=== PATIENT | male | born 1930 | race Hispanic/Latino ===

== ENCOUNTER 2021-04-23 12:55 | Inpatient (IN) | payer MEDICARE, SELFPAY ==
[2021-04-23 13:22] LABS: Actual Bicarbonate (HCO3v) 21 mEq/L (22-28); Analyzer IN Cardio ER; Base Excess -3.2 mEq/L (-2.0 to +3.0); Calcium, Ionized (venous) 1.12 mmol/L (1.16-1.32); Chloride (VBG) 109 mmol/L (98-106); Hemoglobin (Hb) 17.9 g/dL (12.6-17.4); Sodium 140.9 mmol/L (133-146); pH (venous) 7.38 (7.32-7.43)
[2021-04-23 13:46] LABS: #Eosinphils 0.1 thou/uL (0.0-0.7); #Lymphocytes 1.2 thou/uL (1.20-3.40); #Monocytes 0.4 thou/uL (0.11-0.59); #Neutrophils 7.8 thou/uL (1.40-6.50); %Basophils 0.2 % (0.0-1.0); %Eosinophils 0.9 % (0.0-10.0); %Lymphocytes 12.6 % (21.0-51.0); %Monocytes 4.6 % (0.0-10.0); %Neutrophils 81.6 % (42.0-75.0); Hemoglobin 16.5 g/dL (14.0-18.0); Mean Corpuscular HGB CONC 32.6 g/dL (32.0-36.0); Mean Corpuscular Hemoglobin 31.3 pg (27.0-31.0); Mean Platelet Volume 7.7 fL (7.4-10.4); Platelet Count 151 thou/uL (130-400); RBC Distribution Width 12.9 % (11.5-14.5); Red Blood Cell (RBC) Count 5.28 mill/uL (4.70-6.10); White Blood Cell (WBC) Count 9.6 thou/uL (4.8-10.8)
[2021-04-23] MEDS ORDERED: EPINEPHrine 1 MG/ML AMP ONE (13:46)
[2021-04-23] MEDS ORDERED: Bupivacaine PF 0.5% 30 ML VIAL ONE (13:46)
[2021-04-23] MEDS ORDERED: Albumin 5% 500 ML ONE (13:46)
[2021-04-23] MEDS ORDERED: Dexamethasone 4 mg/ml Vial ONE (13:46)
[2021-04-23] MEDS ORDERED: Midazolam HCl 5 mg/5 ml Vial ONE (13:55)
[2021-04-23] MEDS ORDERED: Fentanyl 250 MCG/5 ML VIAL ONE (13:55)
[2021-04-23 14:00] LABS: ALT (SGPT) 23 U/L (8-55); AST (SGOT) 29 U/L (5-34); Albumin 3.5 g/dL (3.4-4.8); Alkaline Phosphatase 47 U/L (40-110); Anion Gap 16 mmol/L (10-20); BUN (Urea Nitrogen) 17 mg/dL (8.4-25.7); Calc. Creatinine Clearance 0 mL/min (70-130); Carbon Dioxide 15 mmol/L (23-31); Chloride 111 mmol/L (98-107); Globulin 3.7 g/dL (2.4-3.5); Glucose 149 mg/dL (83-110); Potassium 3.9 mmol/L (3.5-5.1); Protein, Total 7.2 g/dL (5.8-8.1); Sodium 138 mmol/L (136-145)
[2021-04-23] MEDS ORDERED: Aminocaproic Acid 5 GM/20 ML VIAL ONE (14:26)
[2021-04-23] MEDS ORDERED: Norepinephrine 4 MG/4 ML VIAL ONE (14:26)
[2021-04-23] MEDS ORDERED: Protamine Sulfate 250 MG/25 ML VIAL ONE (14:26)
[2021-04-23] MEDS ORDERED: Heparin 30,000 units/30 ml VIAL ONE (14:26)
[2021-04-23] MEDS ORDERED: Vecuronium 10 MG VIAL ONE (14:26)
[2021-04-23] MEDS ORDERED: Glycopyrrolate 0.2 MG/ML 5 ML SYRINGE ONE (14:26)
[2021-04-23] MEDS ORDERED: Sodium Bicarb 50 MEQ/50 ML Abboject 8.4% SYRINGE ONE (14:26)
[2021-04-23] MEDS ORDERED: Mannitol 12.5 GM/50 ML ONE (14:26)
[2021-04-23] MEDS ORDERED: Thrombin 5000 UNITS/5 ML VIAL ONE (14:26)
[2021-04-23] MEDS ORDERED: Calcium Chloride 1 GM/10 ML Abboject SYRINGE ONE (14:26)
[2021-04-23] MEDS ORDERED: Cardioplegic Soln 1,000 ML BAG ONE (14:26)
[2021-04-23] MEDS ORDERED: PROPOFOL 200 MG/20 ML VIAL ONE (14:26)
[2021-04-23] MEDS ORDERED: Lidocaine 2% PF 100 mg/5 ml Syringe ONE (14:26)
[2021-04-23] MEDS ORDERED: Papaverine 60 MG/2 ML VIAL ONE (14:26)
[2021-04-23] MEDS ORDERED: Heparin 5,000 UNITS/ML VIAL ONE (14:26)
[2021-04-23] MEDS ORDERED: Potassium Chloride 60 MEQ/30 ML VIAL ONE (14:26)
[2021-04-23] MEDS ORDERED: Magnesium Sulfate 1 GM/2 ML VIAL ONE (14:26)
[2021-04-23] MEDS ORDERED: CEFAZOLIN 2 GM in Premix Bag 1 BAG IVPB SCH (14:30)
[2021-04-23] MEDS ORDERED: Mag-Al 1200 mg/1200 mg/30 ML UDCUP PO PRN (18:08)
[2021-04-23] MEDS ORDERED: traMADol HCl 50 MG TAB PO PRN ×2 (18:08)
[2021-04-23] MEDS ORDERED: Hetastarch 6% 500 ML 500 ML IVPB PRN (18:08)
[2021-04-23] MEDS ORDERED: Guaifenesin DM 100-10/5 ML UDCUP PO PRN (18:08)
[2021-04-23] MEDS ORDERED: Nitroglycerin 50 MG/250 ML BOT 250 ML IVPB PRN (18:08)
[2021-04-23] MEDS ORDERED: Morphine 2 MG/ML VIAL SLOW IVP PRN ×2 (18:08→19:15)
[2021-04-23] MEDS ORDERED: Post-Op Insulin Drip Protocol IVPB ONE (18:08)
[2021-04-23] MEDS ORDERED: Potassium Chloride 20 MEQ/100 ML PREMIX BAG IVPB PRN (18:08)
[2021-04-23] MEDS ORDERED: Norepinephrine 8 MG/0.9% NS 250 ML IVPB PRN (18:08)
[2021-04-23] MEDS ORDERED: Fentanyl 100 MCG/2 ML VIAL SLOW IVP PRN ×2 (18:08)
[2021-04-23] MEDS ORDERED: Bisacodyl 10 MG SUPP PR PRN (18:08)
[2021-04-23] MEDS ORDERED: Promethazine HCl 25 MG/ML VIAL IM PRN (18:08)
[2021-04-23] MEDS ORDERED: Magnesium 2 GM/50 ML 2 GM in Premix Bag 1 BAG IVPB SCH (18:08)
[2021-04-23] MEDS ORDERED: Atropine Sulfate 1 mg/10 ml Syringe ONE ×2 (18:10→20:16)
[2021-04-23] MEDS ORDERED: Insulin Regular 300 UNITS/3 ML VIAL ONE (18:15)
[2021-04-23] MEDS ORDERED: Fentanyl 100 MCG/2 ML VIAL ONE (18:17)
[2021-04-23 18:30] LABS: Hemoglobin 14.2 g/dL (14.0-18.0); Mean Corpuscular HGB CONC 32.7 g/dL (32.0-36.0); Mean Corpuscular Hemoglobin 31.7 pg (27.0-31.0); Mean Corpuscular Volume 97.1 fL (78.0-98.0); Mean Platelet Volume 7.8 fL (7.4-10.4); Platelet Count 141 thou/uL (130-400); Red Blood Cell (RBC) Count 4.47 mill/uL (4.70-6.10); White Blood Cell (WBC) Count 21.1 thou/uL (4.8-10.8)
[2021-04-23] MEDS ORDERED: DOPamine 400 MG/D5W 250 ML 250 ML ONE (18:34)
[2021-04-23 18:38] LABS: INR-International Normal Ratio 1.3; PTT 29.7 sec (22.9-36.1); Prothrombin Time 16.7 sec (12.0-14.7)
[2021-04-23] MEDS: D5 1/2 NS w/20 mEq KCL 1,000 ML IV SCH (18:40)
[2021-04-23] MEDS ORDERED: Morphine 4 MG/ML VIAL ONE (18:47)
[2021-04-23 18:50] LABS: Anion Gap 16 mmol/L (10-20); BUN (Urea Nitrogen) 14 mg/dL (8.4-25.7); Calc. Creatinine Clearance 0 mL/min (70-130); Calcium 9.3 mg/dL (7.8-10.44); Carbon Dioxide 14 mmol/L (23-31); Chloride 113 mmol/L (98-107); Glucose 158 mg/dL (83-110); Potassium 4.9 mmol/L (3.5-5.1); Sodium 138 mmol/L (136-145)
[2021-04-23 18:58] LABS: Band 31 % (5-11); Eosinophils 1 % (0-10); Lymphocytes 3 % (21-51); MDiff Complete? YES; Monocytes 1 % (0-10); Neutrophil 54 % (42-75); Platelet Morphology Comment Appears Adequate; RBC Morphology Normal; Reactive Lymphocytes 10 % (0-10)
[2021-04-23] MEDS ORDERED: Propofol 1,000 MG/100 ML VIAL IV ONE (19:08)
[2021-04-23] MEDS: Propofol 1,000 MG/100 ML VIAL IV PRN (19:10)
[2021-04-23] MEDS ORDERED: Morphine 4 MG/ML VIAL SLOW IVP PRN (19:15)
[2021-04-23] MEDS ORDERED: Lorazepam 2 MG/ML VIAL SLOW IVP PRN (19:15)
[2021-04-23] MEDS ORDERED: Propofol BOLUS 1,000 MG/100 ML VIAL IV PRN (19:15)
[2021-04-23] MEDS ORDERED: Fentanyl BOLUS 250 ML IVPB PRN (19:15)
[2021-04-23] MEDS ORDERED: Fentanyl CADD 100 ML IV SCH (19:15)
[2021-04-23] MEDS ORDERED: DISCONTINUE PREVIOUS NARCOTIC PAIN MEDICATIONS AND BENZODIAZEPINES FS SCH (19:15)
[2021-04-23] MEDS ORDERED: Lidocaine 1% (PF) 30 ML VIAL ONE (19:22)
[2021-04-23] MEDS ORDERED: Adenosine 6 MG/2 ML VIAL ONE (20:16)
[2021-04-23] MEDS: Ketorolac Tromethamine 30 MG/ML VIAL IVP SCH (20:51)
[2021-04-23] MEDS: Famotidine/PF 20 mg/2ml Vial SLOW IVP SCH (20:51)
[2021-04-23] MEDS: Atorvastatin Calcium 40 MG TAB PO SCH (20:52)
[2021-04-23] MEDS: HUMULIN R 100 UNITS in Sodium Chloride 0.9% 100 ML IVPB SCH (21:56)
[2021-04-23] MEDS: ceFAZolin Sodium/D5W 2 GM in Premix Bag 1 BAG IVPB SCH (22:23)
[2021-04-24 00:23] LABS: Hemoglobin 15.4 g/dL (14.0-18.0)
[2021-04-24] MEDS: Ketorolac Tromethamine 30 MG/ML VIAL IVP SCH ×4 (01:10→19:11)
[2021-04-24 01:43] LABS: Potassium 4.7 mmol/L (3.5-5.1)
[2021-04-24] MEDS: Propofol 1,000 MG/100 ML VIAL IV PRN (02:26)
[2021-04-24 04:36] LABS: #Eosinphils 0.1 thou/uL (0.0-0.7); #Lymphocytes 1.7 thou/uL (1.20-3.40); #Monocytes 1.1 thou/uL (0.11-0.59); #Neutrophils 15.8 thou/uL (1.40-6.50); %Basophils 0.3 % (0.0-1.0); %Eosinophils 0.4 % (0.0-10.0); %Lymphocytes 9.1 % (21.0-51.0); %Monocytes 5.7 % (0.0-10.0); %Neutrophils 84.6 % (42.0-75.0); Mean Corpuscular Hemoglobin 32.5 pg (27.0-31.0); Mean Corpuscular Volume 95.7 fL (78.0-98.0); Platelet Count 171 thou/uL (130-400); RBC Distribution Width 13.2 % (11.5-14.5); Red Blood Cell (RBC) Count 4.91 mill/uL (4.70-6.10); White Blood Cell (WBC) Count 18.6 thou/uL (4.8-10.8)
[2021-04-24 05:11] LABS: Anion Gap 13 mmol/L (10-20); BUN (Urea Nitrogen) 18 mg/dL (8.4-25.7); Calc. Creatinine Clearance 0 mL/min (70-130); Calcium 9.3 mg/dL (7.8-10.44); Carbon Dioxide 16 mmol/L (23-31); Chloride 114 mmol/L (98-107); Glucose 107 mg/dL (83-110); Potassium 4.2 mmol/L (3.5-5.1); Sodium 139 mmol/L (136-145)
[2021-04-24] MEDS: ceFAZolin Sodium/D5W 2 GM in Premix Bag 1 BAG IVPB SCH ×2 (06:18→12:55)
[2021-04-24] MEDS: Aspirin 325 MG TAB PO SCH (07:27)
[2021-04-24] MEDS: Magnesium 2 GM/50 ML 2 GM in Premix Bag 1 BAG IVPB SCH (07:29)
[2021-04-24] MEDS: Famotidine/PF 20 mg/2ml Vial SLOW IVP SCH ×2 (07:29→20:02)
[2021-04-24] MEDS: D5 1/2 NS w/20 mEq KCL 1,000 ML IV SCH (17:24)
[2021-04-24] MEDS: HUMULIN R 100 UNITS in Sodium Chloride 0.9% 100 ML IVPB SCH (17:25)
[2021-04-24] MEDS: Atorvastatin Calcium 40 MG TAB PO SCH (20:03)
[2021-04-25] MEDS: Ketorolac Tromethamine 30 MG/ML VIAL IVP SCH ×4 (00:03→19:29)
[2021-04-25 03:37] LABS: Chloride 112 mmol/L (98-107); Potassium 4.5 mmol/L (3.5-5.1); Sodium 140 mmol/L (136-145)
[2021-04-25 03:38] LABS: Calcium 8.2 mg/dL (7.8-10.44); Glucose 114 mg/dL (83-110)
[2021-04-25 03:40] LABS: Anion Gap 12 mmol/L (10-20); Carbon Dioxide 21 mmol/L (23-31)
[2021-04-25 03:42] LABS: BUN (Urea Nitrogen) 25 mg/dL (8.4-25.7); Calc. Creatinine Clearance 48 mL/min (70-130)
[2021-04-25 04:57] LABS: #Lymphocytes 1.8 thou/uL (1.20-3.40); #Monocytes 1.1 thou/uL (0.11-0.59); #Neutrophils 13.1 thou/uL (1.40-6.50); %Basophils 0.3 % (0.0-1.0); %Eosinophils 0.3 % (0.0-10.0); %Lymphocytes 11.2 % (21.0-51.0); %Monocytes 6.9 % (0.0-10.0); %Neutrophils 81.3 % (42.0-75.0); Hemoglobin 13.6 g/dL (14.0-18.0); Mean Corpuscular HGB CONC 34.2 g/dL (32.0-36.0); Mean Corpuscular Volume 96.6 fL (78.0-98.0); Mean Platelet Volume 7.8 fL (7.4-10.4); Platelet Count 119 thou/uL (130-400); Platelet Morphology Comment Appears Decreased; RBC Distribution Width 13.1 % (11.5-14.5); Red Blood Cell (RBC) Count 4.13 mill/uL (4.70-6.10); White Blood Cell (WBC) Count 16.1 thou/uL (4.8-10.8)
[2021-04-25] MEDS: Aspirin 325 MG TAB PO SCH (07:35)
[2021-04-25] MEDS: Famotidine/PF 20 mg/2ml Vial SLOW IVP SCH ×2 (07:36→20:05)
[2021-04-25] MEDS: Magnesium 2 GM/50 ML 2 GM in Premix Bag 1 BAG IVPB SCH (07:36)
[2021-04-25] MEDS ORDERED: Insulin Regular 300 UNITS/3 ML VIAL SC PRN ×2 (08:00)
[2021-04-25] MEDS ORDERED: Dextrose 5% in Water 1,000 ML IV PRN (08:15)
[2021-04-25] MEDS ORDERED: Dextrose 50% Abboject 50 ML SYRINGE IVP PRN (08:15)
[2021-04-25] MEDS: D5 1/2 NS w/20 mEq KCL 1,000 ML IV SCH (13:06)
[2021-04-25] MEDS: HYDROcodone/Acetaminophen 5/325 mg Tablet PO PRN (17:24)
[2021-04-25] MEDS: Atorvastatin Calcium 40 MG TAB PO SCH (20:05)
[2021-04-26] MEDS: Ketorolac Tromethamine 30 MG/ML VIAL IVP SCH ×4 (00:50→18:15)
[2021-04-26 05:17] LABS: Anion Gap 10 mmol/L (10-20); BUN (Urea Nitrogen) 27 mg/dL (8.4-25.7); Calc. Creatinine Clearance 57 mL/min (70-130); Calcium 7.7 mg/dL (7.8-10.44); Carbon Dioxide 22 mmol/L (23-31); Chloride 110 mmol/L (98-107); Glucose 108 mg/dL (83-110); Potassium 4.6 mmol/L (3.5-5.1); Sodium 137 mmol/L (136-145)
[2021-04-26 05:19] LABS: #Eosinphils 0.2 thou/uL (0.0-0.7); #Lymphocytes 1.5 thou/uL (1.20-3.40); #Monocytes 0.7 thou/uL (0.11-0.59); #Neutrophils 8.5 thou/uL (1.40-6.50); %Basophils 0.1 % (0.0-1.0); %Eosinophils 1.9 % (0.0-10.0); %Lymphocytes 13.5 % (21.0-51.0); %Monocytes 6.7 % (0.0-10.0); %Neutrophils 77.9 % (42.0-75.0); Hemoglobin 13.3 g/dL (14.0-18.0); Mean Corpuscular HGB CONC 32.2 g/dL (32.0-36.0); Mean Corpuscular Hemoglobin 31.4 pg (27.0-31.0); Mean Corpuscular Volume 97.7 fL (78.0-98.0); Mean Platelet Volume 8.1 fL (7.4-10.4); Platelet Count 97 thou/uL (130-400); RBC Distribution Width 13.1 % (11.5-14.5); Red Blood Cell (RBC) Count 4.25 mill/uL (4.70-6.10); White Blood Cell (WBC) Count 10.9 thou/uL (4.8-10.8)
[2021-04-26] MEDS ORDERED: Amiodarone 450 MG in Dextrose 5% in Water 250 ML IVPB SCH (06:00)
[2021-04-26] MEDS: Famotidine/PF 20 mg/2ml Vial SLOW IVP SCH ×2 (08:18→20:05)
[2021-04-26] MEDS: Aspirin 325 MG TAB PO SCH (09:27)
[2021-04-26] MEDS ORDERED: Furosemide 40 MG/4 ML VIAL SLOW IVP SCH (12:15)
[2021-04-26] MEDS ORDERED: Enoxaparin Sodium 40 MG/0.4 ML SYRINGE SC SCH (12:15)
[2021-04-26] MEDS: D5 1/2 NS w/20 mEq KCL 1,000 ML IV SCH (16:04)
[2021-04-26] MEDS: Atorvastatin Calcium 40 MG TAB PO SCH (20:05)
[2021-04-27] MEDS: hydrALAZINE 20 MG/ML VIAL SLOW IVP PRN (01:25)
[2021-04-27] MEDS: HYDROcodone/Acetaminophen 5/325 mg Tablet PO PRN ×3 (02:26→22:49)
[2021-04-27 04:14] LABS: #Eosinphils 0.3 thou/uL (0.0-0.7); #Lymphocytes 1.2 thou/uL (1.20-3.40); #Monocytes 0.7 thou/uL (0.11-0.59); #Neutrophils 10.3 thou/uL (1.40-6.50); %Basophils 0.3 % (0.0-1.0); %Eosinophils 2.7 % (0.0-10.0); %Lymphocytes 9.8 % (21.0-51.0); %Monocytes 5.5 % (0.0-10.0); %Neutrophils 81.7 % (42.0-75.0); Hemoglobin 14.7 g/dL (14.0-18.0); Mean Corpuscular HGB CONC 32.7 g/dL (32.0-36.0); Mean Corpuscular Hemoglobin 31.7 pg (27.0-31.0); Mean Corpuscular Volume 96.9 fL (78.0-98.0); Mean Platelet Volume 8.3 fL (7.4-10.4); Platelet Count 113 thou/uL (130-400); RBC Distribution Width 12.8 % (11.5-14.5); Red Blood Cell (RBC) Count 4.65 mill/uL (4.70-6.10); White Blood Cell (WBC) Count 12.6 thou/uL (4.8-10.8)
[2021-04-27 04:22] LABS: Anion Gap 16 mmol/L (10-20); BUN (Urea Nitrogen) 24 mg/dL (8.4-25.7); Calc. Creatinine Clearance 62 mL/min (70-130); Calcium 8.3 mg/dL (7.8-10.44); Carbon Dioxide 19 mmol/L (23-31); Chloride 107 mmol/L (98-107); Glucose 110 mg/dL (83-110); Potassium 4.4 mmol/L (3.5-5.1); Sodium 138 mmol/L (136-145)
[2021-04-27] MEDS ORDERED: CEFAZOLIN 1 GM VIAL ONE ×2 (06:43→11:55)
[2021-04-27] MEDS ORDERED: Gentamicin 80 MG/2 ML VIAL ONE (06:43)
[2021-04-27] MEDS ORDERED: Lidocaine 1% (PF) 30 ML VIAL ONE (06:43)
[2021-04-27] MEDS ORDERED: Furosemide 40 MG/4 ML VIAL ONE (06:55)
[2021-04-27] MEDS ORDERED: Furosemide 40 MG/4 ML VIAL SLOW IVP SCH (07:00)
[2021-04-27 07:33] LABS: ALV-art Gradient 108.485 mmHg (0-20); Actual Bicarbonate (HCO3a) 19.1 mEq/L (22-28); Base Excess (BEa) -2.6 mEq/L (-2.0 to +3.0); CO2 Tension 26.3 mmHg (35.0-45.0); Calcium, Ionized (arterial) 1.08 mmol/L (1.12-1.30); Carboxyhemoglobin (COHb) 0.5 gm% (0.0-3.0); Hemoglobin (Hb) 14.9 g/dL (14.0-18.0); O2 Tension (PaO2), arterial 86.8 mmHg (> 60.0); Potassium - ABG Lab 4.21 mmol/L (3.70-5.30); Puncture Site RRA; pH, Arterial 7.48 (7.35-7.45)
[2021-04-27] MEDS: Enoxaparin Sodium 80 MG/0.8 ML SYRINGE SC SCH ×3 (08:00→21:47)
[2021-04-27] MEDS: Aspirin 325 MG TAB PO SCH (08:42)
[2021-04-27] MEDS: Famotidine/PF 20 mg/2ml Vial SLOW IVP SCH ×2 (08:42→21:47)
[2021-04-27] MEDS ORDERED: Enoxaparin Sodium 80 MG/0.8 ML SYRINGE SC SCH (14:45)
[2021-04-27] MEDS: D5 1/2 NS w/20 mEq KCL 1,000 ML IV SCH (15:32)
[2021-04-27] MEDS: Amiodarone 450 MG in Dextrose 5% in Water 250 ML IVPB SCH (15:41)
[2021-04-27] MEDS: Atorvastatin Calcium 40 MG TAB PO SCH (21:47)
[2021-04-28 04:41] LABS: #Eosinphils 0.2 thou/uL (0.0-0.7); #Lymphocytes 1.7 thou/uL (1.20-3.40); #Monocytes 1.3 thou/uL (0.11-0.59); #Neutrophils 12.9 thou/uL (1.40-6.50); %Basophils 0.2 % (0.0-1.0); %Eosinophils 1.3 % (0.0-10.0); %Lymphocytes 10.7 % (21.0-51.0); %Neutrophils 79.9 % (42.0-75.0); Hemoglobin 15.4 g/dL (14.0-18.0); Mean Corpuscular HGB CONC 33.8 g/dL (32.0-36.0); Mean Corpuscular Hemoglobin 32.7 pg (27.0-31.0); Mean Corpuscular Volume 96.8 fL (78.0-98.0); Mean Platelet Volume 8.3 fL (7.4-10.4); Platelet Count 166 thou/uL (130-400); RBC Distribution Width 12.8 % (11.5-14.5); White Blood Cell (WBC) Count 16.2 thou/uL (4.8-10.8)
[2021-04-28 05:01] LABS: Anion Gap 16 mmol/L (10-20); BUN (Urea Nitrogen) 30 mg/dL (8.4-25.7); Calc. Creatinine Clearance 59 mL/min (70-130); Calcium 8.1 mg/dL (7.8-10.44); Carbon Dioxide 19 mmol/L (23-31); Chloride 105 mmol/L (98-107); Glucose 111 mg/dL (83-110); Potassium 4.5 mmol/L (3.5-5.1); Sodium 135 mmol/L (136-145)
[2021-04-28] MEDS: Amiodarone 450 MG in Dextrose 5% in Water 250 ML IVPB SCH ×2 (06:06→23:41)
[2021-04-28] MEDS: Aspirin 325 MG TAB PO SCH (08:38)
[2021-04-28] MEDS: Enoxaparin Sodium 80 MG/0.8 ML SYRINGE SC SCH (08:38)
[2021-04-28] MEDS: Famotidine/PF 20 mg/2ml Vial SLOW IVP SCH (08:39)
[2021-04-28] MEDS ORDERED: Enoxaparin Sodium 80 MG/0.8 ML SYRINGE SC SCH (10:22)
[2021-04-28] MEDS ORDERED: Nitroglycerin 0.4 MG TAB (25 Tab Bottle) SL PRN (10:23)
[2021-04-28] MEDS ORDERED: Guaifenesin DM 100-10/5 ML UDCUP PO PRN (10:23)
[2021-04-28] MEDS ORDERED: Mineral Oil ENEMA PR PRN (10:23)
[2021-04-28] MEDS: HYDROcodone/Acetaminophen 5/325 mg Tablet PO PRN (20:42)
[2021-04-28] MEDS: Atorvastatin Calcium 40 MG TAB PO SCH (20:42)
[2021-04-28] MEDS: Famotidine 20 MG TAB PO SCH (20:42)
[2021-04-29] MEDS: Aspirin 81 mg Enteric Coated Tablet PO SCH (09:17)
[2021-04-29] MEDS: Famotidine 20 MG TAB PO SCH ×2 (09:17→20:44)
[2021-04-29] MEDS: Amiodarone 450 MG in Dextrose 5% in Water 250 ML IVPB SCH (15:39)
[2021-04-29] MEDS: Atorvastatin Calcium 40 MG TAB PO SCH (20:44)
[2021-04-29] MEDS: HYDROcodone/Acetaminophen 5/325 mg Tablet PO PRN (20:44)
[2021-04-30] MEDS: Amiodarone 450 MG in Dextrose 5% in Water 250 ML IVPB SCH (04:56)
[2021-04-30] MEDS ORDERED: Atropine Sulfate 1 mg/10 ml Syringe ONE (05:56)
[2021-04-30] MEDS ORDERED: Gentamicin 80 MG/2 ML VIAL ONE (08:27)
[2021-04-30] MEDS ORDERED: CEFAZOLIN 1 GM VIAL ONE (08:27)
[2021-04-30] MEDS ORDERED: ceFAZolin 2 GM/DEX 5% 100 ML BAG ONE (08:27)
[2021-04-30] MEDS ORDERED: Heparin 0 ML ONE (08:27)
[2021-04-30] MEDS ORDERED: Lidocaine 1% (PF) 30 ML VIAL ONE (08:47)
[2021-04-30] MEDS: Aspirin 81 mg Enteric Coated Tablet PO SCH (08:54)
[2021-04-30] MEDS: Famotidine 20 MG TAB PO SCH ×2 (08:54→22:05)
[2021-04-30] MEDS ORDERED: Midazolam HCl 2 mg/2 ml Vial ONE (11:36)
[2021-04-30] MEDS ORDERED: Fentanyl 100 MCG/2 ML VIAL ONE (11:36)
[2021-04-30] MEDS ORDERED: Propofol 500 MG/50 ML VIAL ONE (11:36)
[2021-04-30] MEDS ORDERED: Promethazine HCl 25 MG/ML VIAL IVPB PRN (13:18)
[2021-04-30] MEDS ORDERED: Promethazine HCl 25 MG/ML VIAL IM PRN (13:18)
[2021-04-30] MEDS ORDERED: Ondansetron HCl/PF 4 MG/2 ML Vial IVP PRN (13:18)
[2021-04-30] MEDS: HYDROcodone/Acetaminophen 5/325 mg Tablet PO PRN (19:11)
[2021-04-30] MEDS: Amiodarone 200 MG TAB PO SCH (22:05)
[2021-04-30] MEDS: Atorvastatin Calcium 40 MG TAB PO SCH (22:05)
[2021-05-01] MEDS: Famotidine 20 MG TAB PO SCH ×2 (09:29→20:09)
[2021-05-01] MEDS: Amiodarone 200 MG TAB PO SCH ×2 (09:29→20:09)
[2021-05-01] MEDS: Aspirin 81 mg Enteric Coated Tablet PO SCH (09:29)
[2021-05-01] MEDS: HYDROcodone/Acetaminophen 5/325 mg Tablet PO PRN (20:09)
[2021-05-01] MEDS: Atorvastatin Calcium 40 MG TAB PO SCH (20:10)
[2021-05-02] MEDS: Aspirin 81 mg Enteric Coated Tablet PO SCH (08:35)
[2021-05-02] MEDS: Amiodarone 200 MG TAB PO SCH ×2 (08:35→20:16)
[2021-05-02] MEDS: HYDROcodone/Acetaminophen 5/325 mg Tablet PO PRN (13:42)
[2021-05-02] MEDS: Famotidine 20 MG TAB PO SCH (20:16)
[2021-05-02] MEDS: Atorvastatin Calcium 40 MG TAB PO SCH (20:16)
[2021-05-02] MEDS: Apixaban 2.5 MG TAB PO SCH (20:16)
[2021-05-03] MEDS: HYDROcodone/Acetaminophen 5/325 mg Tablet PO PRN ×3 (00:28→20:02)
[2021-05-03] MEDS: Aspirin 81 mg Enteric Coated Tablet PO SCH (10:45)
[2021-05-03] MEDS: Amiodarone 200 MG TAB PO SCH ×2 (10:45→20:03)
[2021-05-03] MEDS: Apixaban 2.5 MG TAB PO SCH ×2 (10:45→20:03)
[2021-05-03] MEDS: Atorvastatin Calcium 40 MG TAB PO SCH (20:03)
[2021-05-03] MEDS: Famotidine 20 MG TAB PO SCH (20:04)
[2021-05-04 04:40] LABS: #Basophils 0.1 thou/uL (0.0-0.2); #Lymphocytes 1.7 thou/uL (1.20-3.40); #Monocytes 0.8 thou/uL (0.11-0.59); #Neutrophils 12.1 thou/uL (1.40-6.50); %Basophils 0.5 % (0.0-1.0); %Eosinophils 6.3 % (0.0-10.0); %Monocytes 5.1 % (0.0-10.0); %Neutrophils 77.1 % (42.0-75.0); Hemoglobin 14.7 g/dL (14.0-18.0); Mean Corpuscular HGB CONC 33.5 g/dL (32.0-36.0); Mean Corpuscular Hemoglobin 32.2 pg (27.0-31.0); Mean Corpuscular Volume 96.2 fL (78.0-98.0); Mean Platelet Volume 7.3 fL (7.4-10.4); Platelet Count 302 thou/uL (130-400); RBC Distribution Width 12.9 % (11.5-14.5); Red Blood Cell (RBC) Count 4.55 mill/uL (4.70-6.10); White Blood Cell (WBC) Count 15.7 thou/uL (4.8-10.8)
[2021-05-04 04:57] LABS: Anion Gap 11 mmol/L (10-20); BUN (Urea Nitrogen) 36 mg/dL (8.4-25.7); Calc. Creatinine Clearance 59 mL/min (70-130); Calcium 8.2 mg/dL (7.8-10.44); Carbon Dioxide 21 mmol/L (23-31); Chloride 112 mmol/L (98-107); Glucose 126 mg/dL (83-110); Potassium 4.4 mmol/L (3.5-5.1); Sodium 140 mmol/L (136-145)
[2021-05-04] MEDS: Aspirin 81 mg Enteric Coated Tablet PO SCH (11:19)
[2021-05-04] MEDS: Amiodarone 200 MG TAB PO SCH ×2 (11:19→21:27)
[2021-05-04] MEDS: Apixaban 2.5 MG TAB PO SCH (12:04)
[2021-05-04] MEDS: Famotidine 20 MG TAB PO SCH (21:27)
[2021-05-04] MEDS: Atorvastatin Calcium 40 MG TAB PO SCH (21:27)
[2021-05-05] MEDS: Amiodarone 200 MG TAB PO SCH ×2 (09:53→22:05)
[2021-05-05] MEDS: Aspirin 81 mg Enteric Coated Tablet PO SCH (09:53)
[2021-05-05] MEDS: HYDROcodone/Acetaminophen 5/325 mg Tablet PO PRN ×2 (15:00→19:09)
[2021-05-05] MEDS: Ondansetron PF 4 MG/2 ML Vial IVP PRN (18:48)
[2021-05-05] MEDS ORDERED: Furosemide 40 MG/4 ML VIAL SLOW IVP SCH (19:15)
[2021-05-05] MEDS: Famotidine 20 MG TAB PO SCH (22:05)
[2021-05-05] MEDS: Atorvastatin Calcium 40 MG TAB PO SCH (22:05)
[2021-05-06 05:43] LABS: Hemoglobin 14.9 g/dL (14.0-18.0); Mean Corpuscular HGB CONC 33.7 g/dL (32.0-36.0); Mean Corpuscular Hemoglobin 32.3 pg (27.0-31.0); Mean Corpuscular Volume 95.9 fL (78.0-98.0); Mean Platelet Volume 7.4 fL (7.4-10.4); Platelet Count 350 thou/uL (130-400); Red Blood Cell (RBC) Count 4.62 mill/uL (4.70-6.10)
[2021-05-06 06:03] LABS: ALT (SGPT) 53 U/L (8-55); AST (SGOT) 56 U/L (5-34); Albumin 3.1 g/dL (3.4-4.8); Alkaline Phosphatase 132 U/L (40-110); Anion Gap 17 mmol/L (10-20); BUN (Urea Nitrogen) 44 mg/dL (8.4-25.7); Bilirubin, Total 1.4 mg/dL (0.2-1.2); Calc. Creatinine Clearance 31 mL/min (70-130); Calcium 8.6 mg/dL (7.8-10.44); Carbon Dioxide 20 mmol/L (23-31); Chloride 110 mmol/L (98-107); Globulin 3.5 g/dL (2.4-3.5); Glucose 137 mg/dL (83-110); Potassium 6.1 mmol/L (3.5-5.1); Protein, Total 6.6 g/dL (5.8-8.1); Sodium 141 mmol/L (136-145)
[2021-05-06 06:58] LABS: Band 11 % (5-11); Lymphocytes 8 % (21-51); MDiff Complete? YES; Monocytes 5 % (0-10); Neutrophil 76 % (42-75)
[2021-05-06] MEDS ORDERED: Furosemide 40 MG/4 ML VIAL SLOW IVP SCH ×2 (07:45→09:00)
[2021-05-06] MEDS: Acetaminophen 325 MG TAB PO PRN (10:54)
[2021-05-06] MEDS: Amiodarone 200 MG TAB PO SCH ×2 (10:54→21:23)
[2021-05-06] MEDS: Aspirin 81 mg Enteric Coated Tablet PO SCH (10:54)
[2021-05-06 16:54] LABS: Anion Gap 16 mmol/L (10-20); BUN (Urea Nitrogen) 56 mg/dL (8.4-25.7); Calc. Creatinine Clearance 32 mL/min (70-130); Calcium 8.5 mg/dL (7.8-10.44); Carbon Dioxide 20 mmol/L (23-31); Chloride 109 mmol/L (98-107); Glucose 149 mg/dL (83-110); Potassium 5.3 mmol/L (3.5-5.1); Sodium 140 mmol/L (136-145)
[2021-05-06] MEDS: HYDROcodone/Acetaminophen 5/325 mg Tablet PO PRN (17:04)
[2021-05-06] MEDS: Atorvastatin Calcium 40 MG TAB PO SCH (21:23)
[2021-05-06] MEDS: Bisacodyl 5 MG TAB PO PRN (21:23)
[2021-05-06] MEDS: Famotidine 20 MG TAB PO SCH (21:24)
[2021-05-07 05:27] LABS: #Eosinphils 0.2 thou/uL (0.0-0.7); #Lymphocytes 1.4 thou/uL (1.20-3.40); #Monocytes 1.1 thou/uL (0.11-0.59); #Neutrophils 22.2 thou/uL (1.40-6.50); %Basophils 0.1 % (0.0-1.0); %Lymphocytes 5.8 % (21.0-51.0); %Monocytes 4.4 % (0.0-10.0); %Neutrophils 88.7 % (42.0-75.0); Hemoglobin 13.7 g/dL (14.0-18.0); Mean Corpuscular HGB CONC 33.1 g/dL (32.0-36.0); Mean Corpuscular Hemoglobin 31.9 pg (27.0-31.0); Mean Corpuscular Volume 96.3 fL (78.0-98.0); Mean Platelet Volume 7.4 fL (7.4-10.4); Platelet Count 325 thou/uL (130-400); RBC Distribution Width 12.9 % (11.5-14.5); Red Blood Cell (RBC) Count 4.31 mill/uL (4.70-6.10)
[2021-05-07 05:43] LABS: ALT (SGPT) 49 U/L (8-55); AST (SGOT) 65 U/L (5-34); Albumin 2.8 g/dL (3.4-4.8); Alkaline Phosphatase 126 U/L (40-110); Anion Gap 16 mmol/L (10-20); BUN (Urea Nitrogen) 55 mg/dL (8.4-25.7); Bilirubin, Total 1.4 mg/dL (0.2-1.2); Calc. Creatinine Clearance 39 mL/min (70-130); Calcium 8.5 mg/dL (7.8-10.44); Carbon Dioxide 20 mmol/L (23-31); Chloride 108 mmol/L (98-107); Globulin 3.3 g/dL (2.4-3.5); Glucose 144 mg/dL (83-110); Potassium 4.9 mmol/L (3.5-5.1); Protein, Total 6.1 g/dL (5.8-8.1); Sodium 139 mmol/L (136-145)
[2021-05-07] MEDS: Amiodarone 200 MG TAB PO SCH ×2 (10:52→22:47)
[2021-05-07] MEDS: Aspirin 81 mg Enteric Coated Tablet PO SCH (10:52)
[2021-05-07] MEDS: HYDROcodone/Acetaminophen 5/325 mg Tablet PO PRN (11:31)
[2021-05-07 12:03] LABS: Actual Bicarbonate (HCO3a) 19.5 mEq/L (22-28); Analyzer IN Cardio OR; Base Excess (BEa) -3.9 mEq/L (-2.0 to +3.0); CO2 Tension 30.3 mmHg (35.0-45.0); Calcium, Ionized (arterial) 1.32 mmol/L (1.12-1.30); Carboxyhemoglobin (COHb) 0.1 gm% (0.0-3.0); Hemoglobin (Hb) 11.3 g/dL (14.0-18.0); O2 Tension (PaO2), arterial 213.1 mmHg (> 60.0); Potassium - ABG Lab 5.09 mmol/L (3.70-5.30); pH, Arterial 7.43 (7.35-7.45)
[2021-05-07 12:04] LABS: Actual Bicarbonate (HCO3a) 23.1 mEq/L (22-28); Analyzer IN Cardio OR; Base Excess (BEa) -1.8 mEq/L (-2.0 to +3.0); CO2 Tension 39.6 mmHg (35.0-45.0); Carboxyhemoglobin (COHb) 0.1 gm% (0.0-3.0); Hemoglobin (Hb) 11.1 g/dL (14.0-18.0); O2 Tension (PaO2), arterial 380.4 mmHg (> 60.0); Potassium - ABG Lab 5.43 mmol/L (3.70-5.30); pH, Arterial 7.38 (7.35-7.45)
[2021-05-07 12:04] LABS: Actual Bicarbonate (HCO3a) 26.5 mEq/L (22-28); Analyzer IN Cardio OR; Base Excess (BEa) 1.6 mEq/L (-2.0 to +3.0); CO2 Tension 42.8 mmHg (35.0-45.0); Calcium, Ionized (arterial) 0.89 mmol/L (1.12-1.30); Carboxyhemoglobin (COHb) 0.3 gm% (0.0-3.0); Hemoglobin (Hb) 11.4 g/dL (14.0-18.0); O2 Tension (PaO2), arterial 357.3 mmHg (> 60.0); Potassium - ABG Lab 4.23 mmol/L (3.70-5.30); pH, Arterial 7.41 (7.35-7.45)
[2021-05-07 12:04] LABS: Actual Bicarbonate (HCO3a) 20.5 mEq/L (22-28); Analyzer IN Cardio OR; Base Excess (BEa) -4.2 mEq/L (-2.0 to +3.0); CO2 Tension 36.3 mmHg (35.0-45.0); Calcium, Ionized (arterial) 1.24 mmol/L (1.12-1.30); Carboxyhemoglobin (COHb) 1.1 gm% (0.0-3.0); Hemoglobin (Hb) 14.6 g/dL (14.0-18.0); O2 Tension (PaO2), arterial 83.7 mmHg (> 60.0); Potassium - ABG Lab 4.27 mmol/L (3.70-5.30); pH, Arterial 7.37 (7.35-7.45)
[2021-05-07 12:05] LABS: Actual Bicarbonate (HCO3a) 20.2 mEq/L (22-28); Analyzer IN Cardio OR; CO2 Tension 34.7 mmHg (35.0-45.0); Calcium, Ionized (arterial) 1.11 mmol/L (1.12-1.30); Carboxyhemoglobin (COHb) 1.1 gm% (0.0-3.0); Hemoglobin (Hb) 15.5 g/dL (14.0-18.0); O2 Tension (PaO2), arterial 161.7 mmHg (> 60.0); Potassium - ABG Lab 3.79 mmol/L (3.70-5.30); Puncture Site Arterial Line; pH, Arterial 7.38 (7.35-7.45)
[2021-05-07 12:06] LABS: Puncture Site Arterial Line
[2021-05-07 12:06] LABS: Puncture Site Arterial Line
[2021-05-07 12:07] LABS: Puncture Site Arterial Line
[2021-05-07 12:07] LABS: Puncture Site Arterial Line
[2021-05-07] MEDS: Famotidine 20 MG TAB PO SCH (22:48)
[2021-05-07] MEDS: Atorvastatin Calcium 40 MG TAB PO SCH (22:48)
[2021-05-08] MEDS: Aspirin 81 mg Enteric Coated Tablet PO SCH (08:20)
[2021-05-08] MEDS: Amiodarone 200 MG TAB PO SCH ×2 (08:20→22:26)
[2021-05-08] MEDS: HYDROcodone/Acetaminophen 5/325 mg Tablet PO PRN ×2 (08:22→22:26)
[2021-05-08] MEDS: Atorvastatin Calcium 40 MG TAB PO SCH (22:26)
[2021-05-08] MEDS: Famotidine 20 MG TAB PO SCH (22:26)
[2021-05-08] MEDS: Bisacodyl 5 MG TAB PO PRN (22:26)
[2021-05-09 07:28] LABS: #Basophils 0.1 thou/uL (0.0-0.2); #Eosinphils 0.2 thou/uL (0.0-0.7); #Lymphocytes 1.5 thou/uL (1.20-3.40); #Monocytes 1.2 thou/uL (0.11-0.59); #Neutrophils 17.1 thou/uL (1.40-6.50); %Basophils 0.3 % (0.0-1.0); %Eosinophils 0.8 % (0.0-10.0); %Lymphocytes 7.6 % (21.0-51.0); %Monocytes 5.9 % (0.0-10.0); %Neutrophils 85.3 % (42.0-75.0); Hemoglobin 14.2 g/dL (14.0-18.0); Mean Corpuscular HGB CONC 32.7 g/dL (32.0-36.0); Mean Corpuscular Hemoglobin 31.7 pg (27.0-31.0); Mean Corpuscular Volume 96.8 fL (78.0-98.0); Mean Platelet Volume 7.6 fL (7.4-10.4); Platelet Count 313 thou/uL (130-400); RBC Distribution Width 12.8 % (11.5-14.5); Red Blood Cell (RBC) Count 4.48 mill/uL (4.70-6.10); White Blood Cell (WBC) Count 20.1 thou/uL (4.8-10.8)
[2021-05-09 07:48] LABS: Anion Gap 13 mmol/L (10-20); BUN (Urea Nitrogen) 37 mg/dL (8.4-25.7); Calc. Creatinine Clearance 56 mL/min (70-130); Calcium 8.4 mg/dL (7.8-10.44); Carbon Dioxide 22 mmol/L (23-31); Chloride 112 mmol/L (98-107); Glucose 140 mg/dL (83-110); Potassium 4.9 mmol/L (3.5-5.1); Sodium 142 mmol/L (136-145)
[2021-05-09] MEDS: Aspirin 81 mg Enteric Coated Tablet PO SCH (08:26)
[2021-05-09] MEDS: Amiodarone 200 MG TAB PO SCH ×2 (08:26→20:43)
[2021-05-09] MEDS: HYDROcodone/Acetaminophen 5/325 mg Tablet PO PRN ×2 (08:26→20:43)
[2021-05-09] MEDS: Acetaminophen 325 MG TAB PO PRN (15:28)
[2021-05-09] MEDS: Famotidine 20 MG TAB PO SCH (20:43)
[2021-05-09] MEDS: Atorvastatin Calcium 40 MG TAB PO SCH (20:43)
[2021-05-10] MEDS: Amiodarone 200 MG TAB PO SCH ×2 (09:58→20:24)
[2021-05-10] MEDS: Aspirin 81 mg Enteric Coated Tablet PO SCH (09:58)
[2021-05-10] MEDS: HYDROcodone/Acetaminophen 5/325 mg Tablet PO PRN (19:05)
[2021-05-10] MEDS: Atorvastatin Calcium 40 MG TAB PO SCH (20:23)
[2021-05-10] MEDS: Famotidine 20 MG TAB PO SCH (20:23)
[2021-05-11] MEDS: Amiodarone 200 MG TAB PO SCH (08:39)
[2021-05-11] MEDS: Aspirin 81 mg Enteric Coated Tablet PO SCH (08:39)
[2021-05-11] MEDS: hydrALAZINE 20 MG/ML VIAL SLOW IVP PRN (16:31)
[2021-05-11] MEDS: HYDROcodone/Acetaminophen 5/325 mg Tablet PO PRN (17:31)
[2021-05-11] MEDS: Atorvastatin Calcium 40 MG TAB PO SCH (20:43)
[2021-05-11] MEDS: Famotidine 20 MG TAB PO SCH (20:43)
[2021-05-12] MEDS: hydrALAZINE 20 MG/ML VIAL SLOW IVP PRN (04:11)
[2021-05-12] MEDS: HYDROcodone/Acetaminophen 5/325 mg Tablet PO PRN ×3 (05:49→17:04)
[2021-05-12] MEDS: Amiodarone 200 MG TAB PO SCH (09:08)
[2021-05-12] MEDS: Aspirin 81 mg Enteric Coated Tablet PO SCH (09:09)
[2021-05-12] MEDS: Ondansetron PF 4 MG/2 ML Vial IVP PRN ×2 (10:35→17:04)
[2021-05-12] MEDS: Atorvastatin Calcium 40 MG TAB PO SCH (21:09)
[2021-05-12] MEDS: Famotidine 20 MG TAB PO SCH (21:09)
[2021-05-13] MEDS: Amiodarone 200 MG TAB PO SCH (08:24)
[2021-05-13] MEDS: Aspirin 81 mg Enteric Coated Tablet PO SCH (08:24)
[2021-05-13] MEDS: Atorvastatin Calcium 40 MG TAB PO SCH (21:04)
[2021-05-13] MEDS: HYDROcodone/Acetaminophen 5/325 mg Tablet PO PRN (21:04)
[2021-05-13] MEDS: Famotidine 20 MG TAB PO SCH (21:04)
[2021-05-14 01:55] LABS: SARS-CoV-2 NAA Rapid Test Not Detected (NotDetected)
[2021-05-14] MEDS: Aspirin 81 mg Enteric Coated Tablet PO SCH (07:54)
[2021-05-14] MEDS: Amiodarone 200 MG TAB PO SCH (08:01)
[2021-05-14] MEDS ORDERED: ceFAZolin 2 GM/DEX 5% 100 ML BAG ONE (11:31)
[2021-05-14] MEDS ORDERED: Lidocaine 1% PF 5 ML VIAL ONE (11:40)
[2021-05-14] MEDS ORDERED: PROPOFOL 200 MG/20 ML VIAL ONE (11:40)
[2021-05-14 13:18] VITALS: BMI 25.8
[2021-05-14] MEDS: HYDROcodone/Acetaminophen 5/325 mg Tablet PO PRN (16:45)
[2021-05-14] MEDS: Famotidine 20 MG TAB PO SCH (20:24)
[2021-05-14] MEDS: Atorvastatin Calcium 40 MG TAB PO SCH (20:24)
[2021-05-15] MEDS: hydrALAZINE 20 MG/ML VIAL SLOW IVP PRN (00:14)
[2021-05-15] MEDS: HYDROcodone/Acetaminophen 5/325 mg Tablet PO PRN ×3 (04:09→21:39)
[2021-05-15] MEDS: Aspirin 81 mg Enteric Coated Tablet PO SCH (08:23)
[2021-05-15] MEDS: Amiodarone 200 MG TAB PO SCH (08:24)
[2021-05-15] MEDS: Apixaban 2.5 MG TAB PO SCH (21:39)
[2021-05-15] MEDS: Atorvastatin Calcium 40 MG TAB PO SCH (21:40)
[2021-05-15] MEDS: Famotidine 20 MG TAB PO SCH (21:40)
[2021-05-16] MEDS: HYDROcodone/Acetaminophen 5/325 mg Tablet PO PRN ×2 (04:38→14:19)
[2021-05-16 07:46] VITALS: TEMP 97
[2021-05-16] MEDS ORDERED: Lisinopril 2.5 MG TAB PO SCH (09:00)
[2021-05-16] MEDS: Aspirin 81 mg Enteric Coated Tablet PO SCH (09:38)
[2021-05-16] MEDS: Amiodarone 200 MG TAB PO SCH (09:38)
[2021-05-16] MEDS: Apixaban 2.5 MG TAB PO SCH (09:38)
[2021-05-16 12:41] VITALS: BP 152/84
== END 2021-05-16 17:11 | DRG 233 ==
LOC: ERS 12:55 → CCL 13:04 → CCU 14:35 → IMCU/EMU 04-28 12:22 → 3SE 05-05 14:33 → IMCU/EMU 05-05 19:24
PROVIDERS: ADMIT Internal Medicine Cardiovascular Disease; ATTEND Internal Medicine Cardiovascular Disease
PROC: 02100Z9 Bypass Coronary Artery, One Artery from Left Internal Mammary, Open Approach (ICD-10-PCS; principal; 2021-04-23)
PROC: 4A023N7 Measurement of Cardiac Sampling and Pressure, Left Heart, Percutaneous Approach (ICD-10-PCS; 2021-04-23)
PROC: 021109W Bypass Coronary Artery, Two Arteries from Aorta with Autologous Venous Tissue, Open Approach (ICD-10-PCS; 2021-04-23)
PROC: 06BQ4ZZ Excision of Left Saphenous Vein, Percutaneous Endoscopic Approach (ICD-10-PCS; 2021-04-23)
PROC: 06BP4ZZ Excision of Right Saphenous Vein, Percutaneous Endoscopic Approach (ICD-10-PCS; 2021-04-23)
PROC: B2151ZZ Fluoroscopy of Left Heart using Low Osmolar Contrast (ICD-10-PCS; 2021-04-23)
PROC: B2111ZZ Fluoroscopy of Multiple Coronary Arteries using Low Osmolar Contrast (ICD-10-PCS; 2021-04-23)
PROC: 5A1221Z Performance of Cardiac Output, Continuous (ICD-10-PCS; 2021-04-23)
PROC: 3E033XZ Introduction of Vasopressor into Peripheral Vein, Percutaneous Approach (ICD-10-PCS; 2021-04-23)
PROC: 02H60JZ Insertion of Pacemaker Lead into Right Atrium, Open Approach (ICD-10-PCS; 2021-04-24)
PROC: 02HK0JZ Insertion of Pacemaker Lead into Right Ventricle, Open Approach (ICD-10-PCS; 2021-04-24)
PROC: 5A1223Z Performance of Cardiac Pacing, Continuous (ICD-10-PCS; 2021-04-24)
PROC: 0JH606Z Insertion of Pacemaker, Dual Chamber into Chest Subcutaneous Tissue and Fascia, Open Approach (ICD-10-PCS; 2021-04-30)
PROC: 0JH606Z Insertion of Pacemaker, Dual Chamber into Chest Subcutaneous Tissue and Fascia, Open Approach (ICD-10-PCS; 2021-04-30)
PROC: 02H60JZ Insertion of Pacemaker Lead into Right Atrium, Open Approach (ICD-10-PCS; 2021-04-30)
PROC: 02HK0JZ Insertion of Pacemaker Lead into Right Ventricle, Open Approach (ICD-10-PCS; 2021-04-30)
PROC: 0D9670Z Drainage of Stomach with Drainage Device, Via Natural or Artificial Opening (ICD-10-PCS; 2021-05-03)
PROC: 0DH63UZ Insertion of Feeding Device into Stomach, Percutaneous Approach (ICD-10-PCS; 2021-05-14)
DX: I21.09 ST elevation (STEMI) myocardial infarction involving other coronary artery of anterior wall (principal); R57.0 Cardiogenic shock; I63.531 Cerebral infarction due to unspecified occlusion or stenosis of right posterior cerebral artery; I48.92 Unspecified atrial flutter; N17.9 Acute kidney failure, unspecified; Z20.822 Contact with and (suspected) exposure to COVID-19; G47.33 Obstructive sleep apnea (adult) (pediatric); I25.5 Ischemic cardiomyopathy; I25.10 Atherosclerotic heart disease of native coronary artery without angina pectoris; I10 Essential (primary) hypertension; E78.5 Hyperlipidemia, unspecified; I44.0 Atrioventricular block, first degree; I49.5 Sick sinus syndrome; E66.8 Other obesity; I48.91 Unspecified atrial fibrillation; E87.5 Hyperkalemia; G93.89 Other specified disorders of brain; R13.12 Dysphagia, oropharyngeal phase; Z98.49 Cataract extraction status, unspecified eye; Z68.25 Body mass index [BMI] 25.0-25.9, adult; Z79.899 Other long term (current) drug therapy
CPT/HCPCS: 33208; 33210; 36415; 36416; 36430; 36600; 70450; 71045; 76942; 80048; 80053; 82805; 85025; 85347; 85379; 85610; 85730; 86850; 86870; 86900; 86901; 86922; 93005; 93010; 93306; 93458; 93567; 93798; 94002; 94003; 94150; 94640; 95712; 95819; 95957; C1769; C1785; C1898; J0153; J0171; J0282; J0360; J0461; J0690; J1100; J1265; J1580; J1644; J1650; J1815; J1885; J1940; J2001; J2150; J2250; J2270; J2405; J2440; J2704; J2720; J3010; J3370; J3475; J3480; J3490; J7070; J7620; P9045; S0017; S0020; S0028; U0002